=== PATIENT | female | born 1970 | race Two or more races ===

== ENCOUNTER 2017-11-23 09:42 | Outpatient (CLI) | payer OTHER | END 2017-11-23 09:47 | disposition home or self-care (01) | LOC: SONOGRAMA 09:42 | DX: E04.1 Nontoxic single thyroid nodule (principal) ==

== ENCOUNTER → 2018-10-05 | Outpatient (CLI) | payer OTHER | END | disposition home or self-care (01) | LOC: SONOGRAMA 10:20 | DX: E04.1 Nontoxic single thyroid nodule (principal) ==

== ENCOUNTER 2022-04-21 08:33 | Outpatient (CLI) | payer OTHER | END 2022-04-21 08:35 | disposition home or self-care (01) | LOC: SONOGRAMA 08:33 | PROVIDERS: ATTEND Pathology Anatomic Pathology & Clinical Pathology | DX: D34 Benign neoplasm of thyroid gland (principal); E04.9 Nontoxic goiter, unspecified; E04.2 Nontoxic multinodular goiter ==